=== PATIENT | female | born 1940 | race Caucasian/White ===

== ENCOUNTER → 2018-02-15 | Outpatient (CLI) | payer MEDICARE, OTHER ==
[~2018-02-15] MED LIST: CEPH-312 PO; LEVO25TA56 PO; LISI-362 PO; LOR5/325 PO
--- NOTE | 2018-02-15 16:04 | RADIOLOGY IMAGING REPORT ---
FACILITY: [facility] - [place] PATIENT NAME: Monica Barragan : 1940 MR: [id number] V: [id number] EXAM DATE: ORDERING PHYSICIAN: NICOLASA BUCKLEY TECHNOLOGIST: Location: [facility] [place] Patient: Monica Barragan : 1940 Visit/Account:[id number] Date of Sevice: 02/15/2018 EXERCISE MYOCARDIAL PERFUSION IMAGING Single Isotope SPECT Imaging with Exercise and Gated SPECT Imaging DATE OF EXAMINATION: February 15, 2018 REQUESTING PHYSICIAN: MARCIO INDICATION: Atrial fibrillation PROCEDURE: After informed consent the patient received an intravenous injection of Tc-99m sestamibi followed at the appropriate time interval by rest imaging. The patient then exercised according to the standard Florentin protocol for 7.5 minutes achieving 9 METS. Resting heart rate was 65 bpm with a p eak heart rate of 136 bpm which is 95 % of maximal predicted heart rate for age. Blood pressure at rest was 169/102; blood pressure during exercise was 202/72. There was no chest pain during exercise . Exercise was discontinued because of fatigue. Baseline EKG demonstrates sinus rhythm. There were no EKG changes of ischemia at peak exercise. Approximately one minute and 30 seconds prior to the t ermination of exercise, the patient received an intravenous injection of Tc-99m sestamibi followed by stress imaging. DOSE of Tc-99m sestamibi: REST: 12.0 STRESS: 29.8 RAW DATA: Examination of the summed raw data revealed a excellent quality study. MYOCARDIAL PERFUSION: The tomographic images demonstrate normal myocardial perfusion study without e vidence of myocardial ischemia or infarct GATED IMAGES: The gated images demonstrate normal LV systolic performance and wall motion with LVEF greater than 80%. IMPRESSION: 1. Adequate exercise tolerance without chest pain or ischemic EKG changes noted. Hypertension throug hout the study noted no significant arrhythmias throughout the study: No atrial fibrillation. 2. Normal myocardial perfusion study without evidence of myocardial ischemia or infarct. 3. Normal LV systolic performance and wall motion with LVEF greater than 80% Report Dictated By: Deion Mackey at 02/15/2018 3:56 PM Report E-Signed By: Deion Mackey at 02/15/2018 4:00 PM WSN:[id number]
--- NOTE | 2018-02-15 21:09 | RT STRESS TEST REPORT ---
FACILITY: [facility] PATIENT NAME: TREVON GOULD : [id number] MR: [id number] V: [id number] EXAM DATE: ORDERING PHYSICIAN: NICOLASA BUCKLYE TECHNOLOGIST: Lachelle Acquisition Time: 2018-02-15 14:05:30 Total Exercise Time: 00:07:37 Test Indications: AFIB Medications: SEE NUCLEAR MED SHEET Protocol: LA NENA 2 Max HR: 136 BPM 95% of Pred: 143 BPM Max BP: 202/072 mmHG Max Work Load: 9.5 METS Confirmed by GERALDO LIMA ([id number]) on 02/15/2018 9:09:03 PM Referred By: Overread By: GERALDO LIMA
== END ==
LOC: NUC 01:18
PROVIDERS: ATTEND Internal Medicine
DX: R00.2 Palpitations (principal)
CPT/HCPCS: 78452; 93017; A9500